=== PATIENT | male | born 1970 | race Caucasian/White ===

== ENCOUNTER → 2022-09-12 09:26 | Outpatient (BNVA) | payer BC, SELFPAY | PROVIDERS: Visit Provider Nurse Practitioner Family | DX: M25.562 Pain in left knee (principal) | CPT/HCPCS: 73562 ==

== ENCOUNTER 2023-01-04 08:46 | Outpatient (CLI) | payer BC, SELFPAY ==
--- NOTE | 2023-01-04 09:30 | MR_ITS ---
WS: [id number] MRI LEFT KNEE HISTORY: pain COMPARISON: Radiograph 09/12/2022 Anterior cruciate ligament: Mild intrasubstance degeneration. Posterior cruciate ligament: Intact. Medial collateral ligament: Mild surrounding edema and increased T2 signal but no tear. Posterior lateral corner structures: Intact. Medial menisci: Abnormal signal throughout the posterior horn. Fraying along the articular surfaces w ith blunting of the free edge. There is a additional abnormal signal in the meniscal root consistent with a focal tear. Globular like signal in the meniscal root. Lateral meniscus: Intact. Normal signal, size and shape. Extensor mechanism: Distal quadriceps tendon and patellar tendons are intact. Fluid and soft tissue: Moderate-sized joint effusion. There are small loose bodies within the joint e ffusion. Some of these loose bodies extend over the medial femoral condyle are closely associated wit h the medial collateral ligament. The largest loose body measures up to 7 mm. Large complex Hamilton's c yst. There is adjacent fluid which may indicate partial rupture. Hamilton's cyst extends over a length o f 6.7 cm. Soft tissue edema. Osseous and articular structures: Patellofemoral compartment: Normal. Medial compartment: Moderate narrowing medial compartment with complete loss of cartilage. Small oste ophytes. Marrow edema in the femoral condyle and tibial plateau. Lateral compartment: Mild narrowing lateral compartment. Very mild thinning and fissuring of the cart ilage. Small marginal osteophytes. Increased edema within the infrapatellar fat pad. There is mild synovial thickening. MR/MR knee LT wo con* [id number] IMPRESSION: 1. Moderate narrowing of the medial compartment with complete loss of cartilag e and marrow edema. 2. Abnormal signal throughout the posterior horn medial meniscus. Combination of intrasubstance degeneration with globular signal at the meniscal root consis tent with a tear. 3. Moderate-sized joint effusion with small loose bodies. Loose bodies measure up to 7 mm along the medial knee associated with the MCL. 4. Large complex Hamilton's cyst. Adjacent fluid may indicate partial rupture. 5. Mild synovial thickening and increased edema within the infrapatellar fat p ad.
== END 2023-01-04 08:47 | disposition home or self-care (01) ==
PROVIDERS: Visit Provider Orthopaedic Surgery
DX: M25.462 Effusion, left knee (principal); M71.22 Synovial cyst of popliteal space [Baker], left knee
CPT/HCPCS: 73721

== ENCOUNTER 2023-01-25 08:47 | Day surgery (SDC) | payer BC, SELFPAY ==
[2023-01-24 11:18] VITALS: BMI 30.9
[2023-01-25] VITALS (8 sets, daily range): BP systolic 89–120; BP diastolic 54–73; PULSE 56–67; RESP 13–18; TEMP 36.5–36.7; O2SAT 94–99
[2023-01-25] MEDS: ketorolac 30 mg/mL INJ IVP (09:24)
[2023-01-25] MEDS: acetaminophen 1,000 MG/100 ML PIGGYBACK 400 MG IV (09:24)
[2023-01-25] MEDS: sodium chloride 0.9% 1,000 ML 30 ML IV (09:24)
--- NOTE | 2023-01-25 09:28 | W.PM.OPSUD ---
Surgery/Procedure H&P Update DATE OF PROCEDURE: January 25, 2023 DATE H&P PERFORMED: 01/12/23 CHANGES TO PREVIOUS DOCUMENTATION: None. No changes in patient's HPI from last office visit. Had detailed discussion with patient about his treatment options. At this point in time we will plan to proceed with a left knee diagnostic and surgical arthroscopy with partial medial meniscectomy versus repair and possible removal loose bodies. He understands he does have some degenerative changes of his knee and this could potentially change his indications if he does have a root tear whether a repair will be indicated or not. Examination today he has full range of motion but significant tenderness to palpation on the joint line as well as fullness in the posterior aspect of the knee. Gross motor and sensory intact. Positive Jj's. Stable varus valgus stress. Ultimately he understands the ins and outs of procedure and the postoperative recovery process and multiple scenarios. At this point time he is agreeable to proceeding. He has had persistent pain and issues and is failed conservative treatment and ready to proceed with surgery. All questions answered. Patient understands risk benefits complication alternatives with surgery risk of surgery include but not limited to make a better make it worse injury to nerves vessels or tendons, arthrofibrosis, persistent pain, infection. Understands risk of surgery elects proceed with surgical intervention all questions answered. PREOP DIAGNOSIS: Left knee medial meniscus tear and loose bodies PRIMARY INDICATION FOR PROCEDURE: Left knee medial meniscus tear and loose bodies PLANNED PROCEDURE: Operation Date: 01/25/23 10:45 Proposed Procedures p Left knee diagnostic and surgical arthroscopy 31643 with removal of loose bodies 83642,M25.569, M23.304(Left) - Brooks Lay DO
--- NOTE | 2023-01-25 09:39 | ANES.PREANE2 ---
Pre-Anesthetic Assessment Height/Weight: Height 1.63 m Weight 81.647 kg O2 Del Method Room Air 01/25/23 09:08 Preop Diagnosis: Left knee medial meniscus tear and loose bodies Operation Date: 01/25/23 10:45 Proposed Procedures p Left knee diagnostic and surgical arthroscopy 03217 with removal of loose bodies [id number],M25.569, M23.304(Left) - Brooks Chouteau, DO Familial anesthetic complications: none Was Beta Titus taken within 24 hours: N/A Was Clonidine taken within 24 hours: N/A Last intake: Intake Last Liquid Date 01/24/23 Last Liquid Time 22:00 Last Solid Date 01/24/23 Last Solid Time 22:00 Social Tobacco and No alcohol Exam alert, oriented x 3, clear to auscultation bilaterally and regular rate & rhythm Airway Mallampati: Class II Dentition: full GI Gastroesophageal Reflux Disease Metabolic Thyroid Disease Anesthetic Plan ASA status: 2 Anesthesia: General Risk of > 500 ml blood loss (7ml/kg in children): No Other Pertinent Information Regional post op prn, per patient preference Medications/Allergies Home Medications Medication Instructions Recorded Confirmed Last Taken Type ibuprofen 800 mg tablet 800 mg PO Q8H #45 tabs 09/12/22 01/24/23 Unknown Rx levothyroxine 25 mcg capsule 25 mcg PO DAILY 12/05/22 01/24/23 01/19/23 History omeprazole 20 mg capsule,delayed 20 mg PO DAILY 12/05/22 01/24/23 01/22/23 History release Allergies Allergy/AdvReac Type Severity Reaction Status Date / Time No Known Allergies Allergy Verified 01/25/23 09:02 Current Medications Generic Name Dose Route Start Last Admin Trade Name Freq PRN Reason Stop Dose Admin Sodium Chloride 1,000 mls @ 30 mls/hr 01/25/23 09:00 01/25/23 09:24 Sodium Chloride 0.9% IV 01/26/23 08:59 30 mls/hr .Q24H OTTO Administration Data Anesthesia Cardiac Studies: No Data to Display
[2023-01-25] MEDS: ceFAZolin 2,000 MG in sodium chloride 0.9% (plus) 50 ML 100 MG IV (11:26)
[2023-01-25] MEDS: lidocaine-epi 2% 20 mL INJ 40 ML INJECTION (12:13)
--- NOTE | 2023-01-25 12:34 | PC.NURSE ---
Pt arrived to PACU, resting comfortably, oral airway in place, O2 at 6L/min via simple mask. Dressing to left knee C/D/I, left foot p/w/d, cap refill < 3 seconds, good pedal pulse noted. RLE elevated on pillow.
--- NOTE | 2023-01-25 12:49 | P.OP_ITS ---
Operative Report Date of procedure: January 25, 2023 Pre-op diagnosis: Preop Diagnosis Left knee medial meniscus tear and loose bodies Procedure: Post-op diagnosis: Left knee medial meniscus tear Left knee extensive synovitis Left knee Medial and patellofemoral chondromalacia Left knee loose body Left knee partial ACL tear Procedure done: Left knee diagnostic and surgical arthroscopy with partial medial meniscectomy Left knee diagnostic and surgical arthroscopy with medial and patellofemoral compartment chondroplasties Left knee diagnostic and surgical arthroscopy with extensive synovectomy of medial lateral and patellofemoral compartments Left knee diagnostic and surgical arthroscopy with ACL debridement Left knee diagnostic and surgical arthroscopy with removal loose body greater than 1 cm Surgeon: Brooks Lay DO Estimated blood loss: 2 Tourniquet: No tourniquet was used IV fluids: 900 mL Complications: None Findings: See operative report narrative Condition: stable Disposition: same day Brief History: Patient is a 53-year-old male with left knee pain.? Patient has failed conservat venkat treatment who has been worked up for left knee pain in the outpatient setting. MRI findings consistent with tear of the medial meniscus tear and loose bodies. Evidence of chondromalacia as well. talked in the office about treatment options patient would like to proceed with a left knee diagnostic and surgical arthroscopy with partial medial meniscectomy versus repair and removal of loose bodies.? Patient understand the ins and outs of the procedure the risk benefits complication alternatives to treatment options.? Understanding risk of surgery they agree to proceed with surgical intervention.? Patient understand this may not provide patient with complete symptomatic relief of? pain as patient does have some underlying arthritis.? Understanding this and patient agree to proceed with surgical intervention all questions answered. Procedure: Patient seen and evaluated in the preoperative holding area.? Consent was reviewed and signed with patient.? Correct extremity was then marked.? Patient seen evaluated Anesthesia Department once cleared for surgery patient was taken back to the operative suite.? Patient was transported onto the OR table in supine position.? All bony prominences well-padded patient was appropriate secured to the bed.? Once appropriately anesthetized a nonsterile tourniquet was applied to the left thigh.? The left lower extremity was then prepped and draped in standard orthopedic fashion.? Final timeout performed.? Patient received appropriate preoperative antibiotics. Patient received local anesthetic of lidocaine with epinephrine into the joint as well as around the portal sites.? No tourniquet was inflated A standard 2 portal vertical incision diagnostic and surgical arthroscopy of the left knee was performed in standard fashion.? Small stab incision made in the inferolateral portal introduced trocar and arthroscope into the suprapatellar pouch.? Suprapatellar pouch was subsequently visualized and found to have significant synovitis but no loose bodies.? Patient had noticeable significant inflamed infrapatellar fat pad and thickening hypertrophic within the patellofemoral compartment.? ?The medial gutter was free of loose bodies I then introduced the arthroscope into the medial compartment.? Within the medial compartment I then established my inferior medial working portal utilizing spinal needle outside in technique.? Once established I then visualized our articular cartilage of the medial compartment with a valgus stress.? Patient was found to have grade 3-4 chondromalacia throughout the medial compartment.? Next I inspected the meniscus.? With an arthroscopic probe was utilized to visual? all aspects of the meniscus.? Meniscal root was found to be intact.? Meniscus was found to be torn at the body to posterior horn junction.? This tear was complex in nature and unable to be repaired. I then subsequently introduced a basket forceps as well as arthroscopic shaver to perform a partial medial meniscectomy to stable meniscal tissue and then utilized a thermal wand to anneal the edges.? Next, I then performed a synovectomy of the medial compartment.? Given patient's chondromalacia there was areas of unstable articular cartilage and I subsequently performed a chondroplasty with arthroscopic shaver and thermal wand.? This completed medial compartment work. Next a introduced the arthroscope to the intercondylar notch.? PCL was intact. The ACL had partial tearing noted. I subsequently introduced the arthroscopic shaver and lightly debrided the ACL with care to maintain its gross integrity. Next I noticed a large loose body adhered within the intercondylar space. I then subsequently utilized an arthroscopic grasper as well as assistance with thermal wand to release and was able to remove the loose body which measured greater than 1 cm in size. Patient had significant thickening of the infrapatellar fat pad spanning into the medial and lateral compartments.? I then performed an extensive synovectomy with the arthroscopic shaver of the patellofemoral medial and lateral compartments as well as the intercondylar notch. Advance the scope into the retrocruciate space and no loose bodies were found. Next I introduced the arthroscope into the lateral compartment the lateral compartment was found to have grade 1-2 chondromalacia.? Lateral meniscus was found to be intact.? The root was intact.? Given the grade 1-2 chondromalacia there is no unstable cartilage pieces to perform chondroplasty.? This completed my work of the lateral compartment and then performed a synovectomy of the l ateral compartment.? Next of the arthroscope was placed into the lateral gutter and this was free of loose bodies.? Finally I reintroduced the arthroscope into the patellofemoral compartment.? The patellofemoral was found to have grade 2-3 chondromalacia of the patellofemoral compartment.? At this point I utilized arthroscopic shaver as well as thermal wand to perform extensive synovectomy of the patellofemoral compartment. I did utilize arthroscopic shaver and thermal wand to perform a patellofemoral compartment chondroplasty to stable articular cartilage tissue. This completed my work of the patellofemoral space.? I then switch my portal sites to the medial working portal.? Completed the rest of my synovectomy and the rest of my examination arthroscopy was normal. All fluid was suctioned from the joint.? ?All instruments were withdrawn.? Portal sites were closed with interrupted nylon suture.? portal sites were then covered with with Xeroform 4 x 4's ABD Curlex and Nicholas wrap.? Patient was then subsequently awakened from anesthesia and taken to PACU in stable condition. Disposition: Patient taken to PACU in stable condition recovering well.? Will receive appropriate discharge structure as well as pain medication postoperatively as well as? DVT prophylaxis.we will have patient follow-up with us in the office in 2 weeks.?? Patient understands and agrees with current p javy.? All questions answered.
--- NOTE | 2023-01-25 12:49 | PM.OP2 ---
Brief Operative Note Date of procedure: 01/25/23 Pre-op diagnosis: Left knee medial meniscus tear, loose bodies Post-op diagnosis: same (Chondromalacia, extensive synovitis, ACL partial tearing) Procedure Done: Left knee diagnostic and surgical arthroscopy with partial medial meniscectomy Left knee diagnostic and surgical arthroscopy with medial and patellofemoral compartment chondroplasties Left knee diagnostic and surgical arthroscopy with extensive synovectomy of medial lateral and patellofemoral compartments Left knee diagnostic and surgical arthroscopy with ACL debridement Left knee diagnostic and surgical arthroscopy with removal loose body greater than 1 cm Surgeon: Brooks Lay Estimated blood loss (mL): 2 Complications: None Post-op Plan: Patient taken to PACU in stable condition recovering well pain controlled. Patient receive appropriate discharge instructions as well as pain medication postoperatively. Patient follow-up in orthopedic office in 2 weeks. Patient understands that if any questions or concerns and contact the office. All questions answered. Condition: stable Disposition: same day Coding Level of Care Code Acute Code for Nolan Villa
--- NOTE | 2023-01-25 12:49 | PM.PACU ---
PACU note Narrative: Patient taken to PACU in stable condition recovering well pain controlled. Dressing on in place to left knee. Left lower extremity is warm well perfused with capillary refill less than 2 seconds distal pulses are palpable and will wiggle toes plantarflex and dorsiflex ankle sensations intact light touch distally. Exam: awake Disposition: discharged
--- NOTE | 2023-01-25 12:53 | PC.NURSE ---
Pt awake, oral airway removed, pt tolerated well.
--- NOTE | 2023-01-25 13:05 | ANE.PACU2 ---
Inpatient post-anesthesia follow up: Airway intact: Yes Vital signs: Temperature 97.7 F Pulse Rate 66 Respiratory Rate 16 Blood Pressure 120/73 Pulse Oximetry 96 Oxygen Delivery Me thod Room Air Oxygen Flow Rate 6 Fraction of Inspir ed Oxygen Hydration adequate: Yes Nausea and vomiting: Yes Pain level: 1 Mental status: Baseline
--- NOTE | 2023-01-26 16:29 | PC.SOCIAL ---
Meryl with [facility] [place] called and questioned patient's aspirin, BID for 14 days quantity 14. CM called Dr. Lay to clarify, he gave a verbal order that it should be Aspirin 81 mg daily for 14 days. CM called Meryl back and updated her of this information.
== END 2023-01-25 13:40 | disposition home or self-care (01) ==
PROVIDERS: Visit Provider Student in an Organized Health Care Education/Training Program
PROC: (CPT 29870; principal; 2023-01-25 10:45)
DX: M23.342 Other meniscus derangements, anterior horn of lateral meniscus, left knee (principal); S83.232A Complex tear of medial meniscus, current injury, left knee, initial encounter; X58.XXXA Exposure to other specified factors, initial encounter; M23.42 Loose body in knee, left knee; K21.9 Gastro-esophageal reflux disease without esophagitis; E03.9 Hypothyroidism, unspecified
CPT/HCPCS: 29876; 29881; J0131; J0690; J1100; J1170; J1885; J2250; J2371; J2405; J2704; J3010; J7030

== ENCOUNTER 2023-02-13 06:00 | Outpatient (RCR) | payer BC, SELFPAY | END 2023-02-13 23:59 | disposition home or self-care (01) | LOC: SPT 06:00 | PROVIDERS: Visit Provider Student in an Organized Health Care Education/Training Program | DX: Z47.89 Encounter for other orthopedic aftercare (principal) | CPT/HCPCS: 97162 ==

== ENCOUNTER 2023-02-14 06:00 | Outpatient (RCR) | payer BC, SELFPAY | END 2023-03-16 23:59 | disposition home or self-care (01) | LOC: SPT 06:00 | PROVIDERS: Visit Provider Student in an Organized Health Care Education/Training Program | DX: Z47.89 Encounter for other orthopedic aftercare (principal) | CPT/HCPCS: 97110; 97530; G0283 ==

== ENCOUNTER 2023-03-17 06:00 | Outpatient (RCR) | payer BC, SELFPAY | END 2023-04-15 23:59 | disposition home or self-care (01) | LOC: SPT 06:00 | PROVIDERS: Visit Provider Student in an Organized Health Care Education/Training Program | DX: Z98.890 Other specified postprocedural states (principal) | CPT/HCPCS: 97110; G0283 ==

== ENCOUNTER → 2023-05-26 08:23 | Outpatient (BNVA) | payer MEDICAID, SELFPAY | PROVIDERS: Visit Provider Student in an Organized Health Care Education/Training Program | DX: M17.12 Unilateral primary osteoarthritis, left knee (principal); Z98.890 Other specified postprocedural states | CPT/HCPCS: 20610 ==